=== PATIENT | female | born 2000 | race Hispanic/Latino ===

== ENCOUNTER → 2023-02-12 15:37 | Outpatient (CLI) | payer OTHER, SELFPAY ==
--- NOTE | 2023-02-12 15:39 | DI.US.S_ITS ---
PROCEDURE: US OB <= 14 WEEKS FETUS INDICATIONS: Dating and viability OUTSIDE/PRIOR DATING DATA: Last menstrual period (LMP): 12/14/2022. LMP-based estimated date of delivery (LEWIS): 09/20/2023 First dating scan (date and location): 02/12/2023. Estimated date of delivery (LEWIS) from first dating scan: 09/19/2023. TECHNIQUE: Real-time scanning was performed of the fetus and maternal pelvic organs, with image documentation. Endovaginal scanning was also performed to better visualize the fetus and maternal ovaries. COMPARISON: None. FINDINGS: Heart rate is 163 beats per minute. Cougar-rump length is 2.1 cm corresponding ultrasound age of 8 weeks 5 days. Corpus luteum is seen on the left. Yolk sac is present. 2.3 x 0.5 x 2.6 cm subchorionic hemorrhage is present. IMPRESSION: Living intrauterine gestation at 8 weeks and 5 days ultrasound age, compatible with reported LMP. Small perigestational hemorrhage. We strive to produce accurate, complete, and clear reports of imaging services. To assist us in improving patient care, this report was composed using standard report templates and voice recognition software. Therefore, it may contain abnormal punctuation, insertions and/or omissions. Occasional wrong-word or sound-alike substitutions may occur. Though we review the report and make efforts to correct it, we do recommend that the report be read carefully in proper context to recognize any text inaccuracies. Dictated by: Boom Cantrell M.D. on 02/12/2023 at 17:12 Approved by: Boom Cantrell M.D. on 02/12/2023 at 17:14
== END ==
PROVIDERS: PCP Family Medicine; Referring Provider Obstetrics & Gynecology; Visit Provider Obstetrics & Gynecology
DX: Z34.01 Encounter for supervision of normal first pregnancy, first trimester (principal); Z3A.08 8 weeks gestation of pregnancy
CPT/HCPCS: 76801; 76817

== ENCOUNTER → 2023-03-12 08:44 | Outpatient (CLI) | payer OTHER, SELFPAY ==
[2023-03-12 09:27] LABS: Specimen Label Y
[2023-03-12 10:08] LABS: Add Manual Diff / Slide Review NO; Basophils Absolute Auto 0 /uL (0-100); Basophils Percent Auto 0.5 % (0-2); Eosinophils Absolute Auto 100 /uL (0-450); Eosinophils Percent Auto 0.9 % (2-4); Hematocrit 35.1 % (36-46); Hemoglobin 11.6 g/dL (12.0-16.0); Lymphocytes Absolute Auto 1300 /uL (1100-4500); Lymphocytes Percent Auto 14.8 % (25-40); Mean Corpuscular Hemoglobin 28.5 PG (26-34); Mean Corpuscular Volume 86.3 fL (80-100); Monocytes Absolute Auto 700 /uL (0-900); Monocytes Percent Auto 8.1 % (3-14); Neutrophils Absolute Auto 6400 /uL (1500-7000); Neutrophils Percent Auto 75.7 % (50-75); Platelet Count 187 X10^3/uL (150-400); Red Blood Cell Count 4.07 X10^6/uL (4.0-5.2); Red Cell Distribution Width 16.1 % (11.6-14.8); White Blood Cell Count 8.5 X10^3/uL (4.5-11.0)
[2023-03-12 11:45] LABS: Urine N gonorrhoeae NOT DETECTED
[2023-03-12 11:46] LABS: Urine Chlamydia NOT DETECTED
[2023-03-13 10:37] LABS: Varicella IgG Antibody 926 index (Immune >165)
[2023-03-13 11:14] LABS: RPR Screen Non Reactive (Non Reactive)
[2023-03-13 21:48] LABS: Hepatitis B Surface Antigen NEGATIVE s/c (NEGATIVE)
[2023-03-13 22:03] LABS: HIV 1 & 2 Ab/Ag 4th Gen Combo NEGATIVE (NEGATIVE); Hep C Virus Ab w/Reflex Quant NEGATIVE s/c (NEGATIVE)
== END ==
PROVIDERS: PCP Family Medicine; Referring Provider Obstetrics & Gynecology; Visit Provider Obstetrics & Gynecology
DX: Z34.81 Encounter for supervision of other normal pregnancy, first trimester (principal); Z3A.12 12 weeks gestation of pregnancy
CPT/HCPCS: 36415; 80055; 86787; 86803; 86850; 86900; 86901; 87086; 87389; 87491; 87591

== ENCOUNTER → 2023-04-09 08:49 | Outpatient (CLI) | payer OTHER, SELFPAY ==
[2023-04-11 20:14] LABS: AFP Value 30.3 ng/mL (.); Gest Age on Col Date 16.6 weeks (.); Insulin Dep Diabetes No (.); OSBR Risk 1IN 10000 (.); Results Report (.); Test Results *Screen Negative* (.)
== END ==
PROVIDERS: PCP Family Medicine; Referring Provider Obstetrics & Gynecology; Visit Provider Obstetrics & Gynecology
DX: Z34.01 Encounter for supervision of normal first pregnancy, first trimester (principal); Z3A.16 16 weeks gestation of pregnancy
CPT/HCPCS: 36415; 82105

== ENCOUNTER → 2023-05-05 08:35 | Outpatient (CLI) | payer OTHER, SELFPAY ==
--- NOTE | 2023-05-05 08:36 | DI.US.S_ITS ---
PROCEDURE: US OB >= 14 WEEKS FETUS INDICATIONS: ANATOMY OUTSIDE/PRIOR DATING DATA: Last menstrual period (LMP): 12/14/2022. LMP-based estimated date of delivery (LEWIS): 09/30/2023 First dating scan (date and location): 02/12/2023 Estimated date of delivery (LEWIS) from first dating scan: 09/19/2023 The calculations are made using the working LEWIS of 09/20/2023 TECHNIQUE: Real-time scanning was performed of the fetus, with image documentation and biometric measurements. Endovaginal scanning: Not indicated COMPARISON: None. FINDINGS: General: A single living intrauterine gestation is present. Presentation: Vertex Placenta: Placental position is anterior, without previa. Amniotic fluid index: 12.9 cm, normal range is 5-24 cm. Single deepest vertical pocket is 4.4 cm. heart rate: 150 beats per minute. Maternal cervical canal: 3.9 cm long. Normal lower limit is 2.5 cm. biometrics: Biparietal diameter: 4.9 cm, 20 weeks, 6 days. Head circumference: 18.3 cm, 20 weeks, 5 days. Abdominal circumference: 15.9 cm, 21 weeks, 0 day. Femur length: 3.2 cm, 20 weeks, 1 day. Clinically estimated gestational age: 20 weeks, 2 days. Composite gestational age from present scan: 20 weeks, 5 days. Estimated weight and percentile: 366 grams, 65 percent. Anatomic survey: Neuro: Ventricles are non-dilated at less than 10 mm. Cisterna magna is normal at 3-11 mm. Cerebellum is normal in size and morphology. Nuchal skin fold: Normal at less than 6 mm between 14-21 weeks gestational age. Face: Nose and lips, facial profile are normal. Spine: No evidence for spina bifida. Heart: 4-chambered heart is present, with normal ventricular outflow tracts. Possible echogenic focus is seen in left ventricle. Diaphragm: Diaphragm is intact. Stomach: Left-sided stomach is present. Kidneys: No hydronephrosis. Normal is less than 5 mm in 2nd trimester, less than 7 mm in 3rd trimester. Cord: 3-vessel cord has orthotopic insertion. Bladder: Normal in size. Extremities: All 4 extremities identified. IMPRESSION: 1. Single live intrauterine gestation with fetus in vertex presentation. heart rate is 150 beats per minute. Normal amount of amniotic fluid. Normal growth. Estimated weight is at 65th percentile. 2. Suggestion of echogenic focus within left ventricle. Follow-up study is recommended. 3. Rest of the anatomic survey is normal. We strive to produce accurate, complete, and clear reports of imaging services. To assist us in improving patient care, this report was composed using standard report templates and voice recognition software. Therefore, it may contain abnormal punctuation, insertions and/or omissions. Occasional wrong-word or sound-alike substitutions may occur. Though we review the report and make efforts to correct it, we do recommend that the report be read carefully in proper context to recognize any text inaccuracies. Dictated by: Franklin Neely M.D. on 05/05/2023 at 11:32 Approved by: Franklin Neely M.D. on 05/05/2023 at 11:35
== END ==
PROVIDERS: PCP Family Medicine; Referring Provider Obstetrics & Gynecology; Visit Provider Obstetrics & Gynecology
DX: Z34.02 Encounter for supervision of normal first pregnancy, second trimester (principal); Z3A.20 20 weeks gestation of pregnancy
CPT/HCPCS: 76811

== ENCOUNTER → 2023-06-14 08:30 | Outpatient (CLI) | payer OTHER, SELFPAY ==
[2023-06-14 10:05] LABS: Hematocrit 30.4 % (36-46)
[2023-06-14 10:22] LABS: GTT (PREG) 1 Hour PP 50gm Dose 72 mg/dL (76-139)
== END ==
PROVIDERS: PCP Family Medicine; Referring Provider Obstetrics & Gynecology; Visit Provider Obstetrics & Gynecology
DX: Z34.02 Encounter for supervision of normal first pregnancy, second trimester (principal); Z3A.26 26 weeks gestation of pregnancy
CPT/HCPCS: 36415; 82950; 85014; 85018

== ENCOUNTER → 2023-07-17 09:50 | Outpatient (CLI) | payer OTHER, SELFPAY | PROVIDERS: PCP Family Medicine; Visit Provider Obstetrics & Gynecology | DX: Z34.03 Encounter for supervision of normal first pregnancy, third trimester (principal); R82.998 Other abnormal findings in urine; Z3A.30 30 weeks gestation of pregnancy | CPT/HCPCS: 87086 ==

== ENCOUNTER → 2023-07-31 16:26 | Outpatient (CLI) | payer OTHER, SELFPAY | PROVIDERS: PCP Family Medicine; Visit Provider Obstetrics & Gynecology | DX: R82.998 Other abnormal findings in urine (principal) | CPT/HCPCS: 87086 ==

== ENCOUNTER → 2023-08-28 15:08 | Outpatient (CLI) | payer OTHER, SELFPAY ==
[2023-08-29 13:10] LABS: Strep Grp B PCR NEG for Grp B Strep
== END ==
PROVIDERS: PCP Family Medicine; Visit Provider Obstetrics & Gynecology
DX: O99.891 Other specified diseases and conditions complicating pregnancy (principal); R82.998 Other abnormal findings in urine; R31.9 Hematuria, unspecified; Z3A.36 36 weeks gestation of pregnancy
CPT/HCPCS: 87086; 87653

== ENCOUNTER → 2023-08-28 15:59 | Outpatient (CLI) | payer OTHER, SELFPAY ==
--- NOTE | 2023-08-28 16:01 | DI.US.S_ITS ---
PROCEDURE: OB FOLLOW UP INDICATIONS: SIZE GREATER THAN DATES OUTSIDE/PRIOR DATING DATA: Last menstrual period (LMP): 03/13/2023. LMP-based estimated date of delivery (LEWIS): 09/20/2023. First dating scan (date and location): 02/12/2023. Estimated date of delivery (LEWIS) from first dating scan: 09/19/2023. TECHNIQUE: Real-time scanning was performed of the fetus, with image documentation. COMPARISON: [facility], OB >= 14 WEEKS FETUS, 05/05/2023, 8:57. [facility], OB <= 14 WEEKS FETUS, 02/12/2023, 16:03. FINDINGS: A single living intrauterine gestation is present. Presentation: Vertex. Placenta: Placental position is anterior, without previa. Amniotic fluid index: 21.1 cm, normal range is 5-24 cm. Single deepest vertical pocket is 8 point cm. heart rate: 143 beats per minute. Maternal cervical canal: Not visualized. biometry: BPD: 38 weeks 4 days Head circumference: 39 weeks 2 days Abdominal circumference: 39 weeks 0 day Femur length: 37 weeks 4 days Clinically estimated gestational age: 36 weeks 5 days Estimated gestational age from initial scan: 3566 g; 94% for gestational age.. Cord Doppler ultrasound demonstrates preserved diastolic flow. IMPRESSION: 1. A single living intrauterine gestation with appropriate interval growth. 2. weight is 94% for gestational age. 3. Fetus in vertex presentation. 4. LYN 21.1 cm. 5. Normal anatomic survey. Dictated by: Josee Yates M.D. on 08/29/2023 at 11:20 Approved by: Josee Yates M.D. on 08/29/2023 at 11:29
== END ==
PROVIDERS: PCP Family Medicine; Referring Provider Obstetrics & Gynecology; Visit Provider Obstetrics & Gynecology
DX: O26.843 Uterine size-date discrepancy, third trimester (principal); O99.891 Other specified diseases and conditions complicating pregnancy; R31.9 Hematuria, unspecified; R82.998 Other abnormal findings in urine; Z3A.36 36 weeks gestation of pregnancy
CPT/HCPCS: 76816; 76820; 87086; 87653

== ENCOUNTER 2023-09-18 16:15 | Outpatient (CLI) | payer OTHER, SELFPAY | END 2023-09-18 17:14 | disposition home or self-care (01) | LOC: LABOR 17:09 → OB 09-22 06:39 | PROVIDERS: PCP Family Medicine; Referring Provider Obstetrics & Gynecology; Visit Provider Obstetrics & Gynecology | DX: O36.63X0 Maternal care for excessive fetal growth, third trimester, not applicable or unspecified (principal); Z3A.39 39 weeks gestation of pregnancy | CPT/HCPCS: 59025; G0378; G0379 ==

== ENCOUNTER 2023-09-22 19:25 | Inpatient (IN) | payer OTHER, SELFPAY ==
--- NOTE | 2023-09-22 19:38 | PM.OBHP.1 ---
OB HPI Date/Time Date of admission: 09/22/23 Date Patient Seen: 09/22/23 Time Patient Seen: 19:38 History of Present Condition Chief complaint: IUP, 40+2 wks EGA, LGA, GBS NEG : 1 Para: 0 Estimated Date of Delivery: 09/20/23 Estimated Gestational Age (weeks): 40+2 Narrative: Melinda Meredith is a 23 year old admitted at 40+ 2 weeks gestational age for cervical ripening and induction due to LGA infant at term with borderline pelvis. Patient's course has been largely uneventful with solid early dating appropriate milestones throughout. Patient's diabetes screen was negative but she has had excessive weight gain with a total weight gain thus far in of 66 lb. 's most recent estimated weight by ultrasound was on 08/28/2023 at which time the estimated weight was 3566 g (94th percentile). Current estimated weight by clinical exam is between 8-1/2 and 9-1/4 lb. Indications Indication for induction OB: other (Large for gestational dates at term) History of Present care: none Dating criteria: LMP confirmed by 1st trimester US Ultrasounds: normal 1st trimester US and normal mid trimester US Obstetrical complications: none and other (Large for gestational dates at her) Preadmission Labs Blood type: O (+) positive -: Antibody screen: negative, GBS status: negative, HBsAG: negative, HIV: negative, HSV 2: negative and RPR/VDLR: negative -: Chlamydia screen: not detected and Gonorrhea screen: not detected -: Rubella: immune and Varicella: immune HCT: 37.5 HCAB: negative PAP: Normal Quad screen: Normal (AFP testing negative) Cell-free DNA: Low risk male 1 hr GTT: 72 Prior (ies) History: G1 Evaluation Evaluation Baseline heart rate: 145 Variability: Moderate (11-25) monitor accelerations: Present Monitor Decelerations: Periodic and Variable Contraction Frequency (minutes): 5 Uterine Contraction Intensity: Mild Status: Category l Dilation (cm): 1 Effacement (%): 30 Dilation: 1-2 cm Effacement: 0-30% station: -2 Position of cervix: posterior Consistency: medium Jolley score: 3 [facility] Medical History (Updated 09/18/23 @ 16:10 by Roman Tamez MD) Acne (~2011) Eczema (~2004) Keloid scar Surgical History (Updated 02/16/23 @ 18:53 by Milady Lpiscomb) Anesthesia History of surgical removal of keloid (~2012) [place] teeth extracted (~2017) Family History (Updated 02/16/23 @ 18:56 by Milady Lipscomb) Grandfather Hypertension Diabetes mellitus Mother Pre-diabetes Heart attack Heart disease Hypertension History of recurrent miscarriages Prior miscarriage with in second trimester, antepartum Grandmother Ovarian cancer Grandmother Breast cancer Hypertension Hyperlipidemia Grandfather Diabetes mellitus Hypertension Hyperlipidemia Grandmother Diabetes mellitus Social History marital status: number of children: 0 household members: spouse lives independently: Yes caregiver/support person: No housing: condominium ([facility]) pets and animals: Yes education level: college (braxton's degree) occupational status: employed (childcare) current occupational exposures/hazards: No special kathya needs: No travel history: recent ([place]) seatbelt use: always helmet use: Yes water heater temp set < 120 deg: Yes working smoke detector in home: Yes fire extinguisher in home: Yes carbon monox detector in home: Yes firearms in home: Yes do you feel safe at home: Yes Smoking Status: Never smoker second hand exposure: No alcohol intake: former (occasionally when not ) substance use type: does not use during the past year weight has: remained stable well-balanced diet: about half the time daily servings fruits/ve-4 caffeine: Yes (occasional black tea) Type(s) of exercise: walking and other (active job) Meds Home Medications and Allergies Home Medications Medication Instructions Recorded Confirmed Type prenat.vits,jelena,yhv-apxe-hyiki 1 tab PO DAILY 02/05/23 09/22/23 History breast pump #1 ea 07/02/23 09/22/23 Rx Allergies Allergy/AdvReac Type Severity Reaction Status Date / Time No Known Drug Allergies Allergy Unverified 09/18/23 15:13 Review of Systems Review of Systems Narrative: Problem-specific ROS positives included in HPI OB Exam Vital signs Blood Pressure: 114/63 Pulse Rate: 101 Temperature: 97.5 F HENMT Head: normal to inspection, normocephalic and atraumatic Eyes General: appearance normal, both eyes and all related structures Resp Effort & Inspection: normal respiratory effort and able to speak in complete sentences Auscultation: clear to auscultation bilaterally Cardio Rate: regular rate Rhythm: regular rhythm Heart Sounds: S1 normal, S2 normal and no murmurs Extremities Lower extremity: Yes normal to inspection GI Inspection: normal to inspection Palpation: Yes soft and Yes no hepatosplenomegaly Uterus Location (Fundal Height): 39 Presentation: vertex Estimated Weight (lbs): 9 Objective Labs 09/22/23 21:00 Assessment and Plan Assessment and Plan Assessment and Plan narrative: ASSESSMENT 1. Intrauterine 40+ 2 weeks gestational age 2. Large for gestational age with borderline pelvis 3. GBS negative status PLAN 1. Admit for cervical ripening, induction, and delivery 2. See admission orders Time Spent with Patient Total time spent with greater than 50% in coordination of care (as documented) at patient's floor/unit and/or counseling patient:: 15-24 minutes
[2023-09-22 21:28] LABS: Add Manual Diff / Slide Review NO; Basophils Absolute Auto 0 /uL (0-100); Basophils Percent Auto 0.2 % (0-2); Eosinophils Absolute Auto 100 /uL (0-450); Eosinophils Percent Auto 1.1 % (2-4); Hematocrit 37.5 % (36-46); Hemoglobin 12.4 g/dL (12.0-16.0); Lymphocytes Absolute Auto 1800 /uL (1100-4500); Lymphocytes Percent Auto 13.6 % (25-40); Mean Corpuscular HGB Conc 32.9 % (30-36); Mean Corpuscular Hemoglobin 28.9 PG (26-34); Mean Corpuscular Volume 87.8 fL (80-100); Monocytes Absolute Auto 1300 /uL (0-900); Monocytes Percent Auto 9.9 % (3-14); Neutrophils Absolute Auto 10000 /uL (1500-7000); Neutrophils Percent Auto 75.2 % (50-75); Platelet Count 211 X10^3/uL (150-400); Red Blood Cell Count 4.27 X10^6/uL (4.0-5.2); Red Cell Distribution Width 16.2 % (11.6-14.8); White Blood Cell Count 13.3 X10^3/uL (4.5-11.0)
[2023-09-22] MEDS: miSOPROStoL 25 MCG TABLET 50 MCG PO (23:05)
[2023-09-23] MEDS: LACTATED RINGERS 1,000 ML 100 ML IV (01:45)
[2023-09-23] MEDS: miSOPROStoL 25 MCG TABLET 50 MCG PO ×3 (03:09→12:50)
[2023-09-23 18:08] VITALS: BP 114/63; PULSE 101; TEMP 36.4
--- NOTE | 2023-09-23 18:12 | PM.OBPNLAB ---
Date/Time Date Patient Seen: 09/23/23 Time Patient Seen: 18:12 Pain Control Pain control: tolerating well Pelvic Exam Dilation (cm): 3 Effacement (%): 80 station: -2 Amniotic membrane status: Intact Contractions Contractions on admission: none Monitor mode: External Contraction pattern: Irregular Contraction phase: Resting Contraction intensity: Moderate Status status: Category l Heart Rate Baseline: 145 Monitor Accelerations: Present Monitor Decelerations: Episodic, Late (Rare, isolated)) and Variable Monitor Variability: Moderate Assessment and Plan Assessment: other (Ripening ongoing) Plan: other (See below) Comments: Uribe balloon would be of minimal benefit with the cervix at 3 cm and vertex remains too high for safe AROM. Will instead use Cervidil overnight and reassess as needed with plans to perform AROM/start Pitocin once vertex is well applied to the cervix.
--- NOTE | 2023-09-23 21:34 | PM.OBPNLAB ---
Date/Time Date Patient Seen: 09/23/23 Time Patient Seen: 21:34 Pain Control Pain control: tolerating well Pelvic Exam Dilation (cm): 3 Effacement (%): 80 station: -2 Amniotic membrane status: Intact Contractions Contractions on admission: none Monitor mode: External Contraction pattern: Irregular Contraction phase: Resting Contraction intensity: Moderate Status status: Category l Heart Rate Baseline: 130 Monitor Accelerations: Present Monitor Decelerations: Episodic and Variable Monitor Variability: Moderate Assessment and Plan Assessment: active labor Plan: begin patient augmentation Comments: Unable to place cervidil due to excessive uterine activity following PO misoprostol therefore will initiate low dose Pitocin after RN discussion of options with the patient, spouse, and family. Order placed.
[2023-09-23] MEDS: OXYTOCIN PREMIX 30 UNIT/500 ML PLAST..BAG IV (22:08)
--- NOTE | 2023-09-24 06:56 | PM.PROC.1 ---
Procedures Date/Time Date of procedure: 09/24/23 Time of procedure: 06:36 General Procedure description: BLANCO Placement Back prepped with Chloroprep Sterile Barriers: Drape, gloves, hat, mask Skin local with 3 mL 1% lido 0633 L3/4 epidural space accessed with 18 g toughy at 7 cm, CLOR with saline and bubble Test dose 3 mL 1.5% lido c epi at 0636: negative catheter threaded to 12 cm, bolus dose of 3 mL 1% lido and 2 mL of test dose at 0638 Pump started 0649 Tolerated procedure well, pain initial 10/10 now 2/10 Nerve Block Time out performed: Yes (632) Local anesthetic used: lidocaine 1% (3 mL) Location of anesthetic used: L3/4
[2023-09-24] MEDS: ONDANSETRON 4 MG/2 ML INJ IV ×2 (07:39→15:56)
--- NOTE | 2023-09-24 08:11 | PM.OBPNLAB ---
Date/Time Date Patient Seen: 09/24/23 Time Patient Seen: 08:11 Pain Control Pain control: tolerating well and epidural Pelvic Exam Dilation (cm): 3 Effacement (%): 85 station: -2 Amniotic membrane status: Ruptured Comments: SROM, clear fluid Contractions Contractions on admission: none Monitor mode: Internal (IUPC placed 0800) Pitocin rate (mU/min): 7 Contraction frequency (min): 4 Contraction duration (min): 1 Contraction pattern: Irregular Contraction phase: Resting Contraction intensity: Moderate Status status: Category l Heart Rate Baseline: 135 Monitor Accelerations: Present Monitor Decelerations: Absent Monitor Variability: Moderate Assessment and Plan Assessment: induction ongoing Comments: IUPC placed to assess uterine contraction activity. Patient has had very little change since last evening and both caput and molding were noted on sterile vaginal exam. Would vertex not descending and cervix essentially unchanged over the last 12 hours, am increasingly concerned about the possibility of secondary arrest due to cephalopelvic disproportion. Patient is aware of these concerns and will closely observe for progress and effective uterine contraction activity.
[2023-09-24] MEDS: FENT 2MCG/ML BUPIV 0.125% EPI 200 MCG/100 ML PLAST..BAG 6 MCG EPIDURAL ×2 (12:24→19:16)
--- NOTE | 2023-09-24 12:50 | PM.OBPNLAB ---
Date/Time Date Patient Seen: 09/24/23 Time Patient Seen: 12:25 Pain Control Pain control: tolerating well and epidural Pelvic Exam Dilation (cm): 6 Effacement (%): 100 station: -1 Amniotic membrane status: Ruptured Contractions Contractions on admission: none Monitor mode: Internal (IUPC placed 0800) Pitocin rate (mU/min): 20 Contraction frequency (min): 4 Contraction pattern: Regular Contraction phase: Resting Contraction intensity: Moderate Intrauterine tone measurement: 20 Status status: Category l Heart Rate Baseline: 135 Monitor Accelerations: Present Monitor Decelerations: Absent Monitor Variability: Moderate Assessment and Plan Assessment: active labor and induction ongoing Plan: continuous present management Comments: Reassess for continued progress in 2-4 hrs or PRN.
[2023-09-24] MEDS: CALCIUM CARBONATE 500 MG TAB 1000 MG PO (21:59)
--- NOTE | 2023-09-24 22:06 | PM.OBPNLAB ---
Date/Time Date Patient Seen: 09/24/23 Time Patient Seen: 21:15 Pain Control Pain control: epidural Pelvic Exam Dilation (cm): 8 Effacement (%): 100 station: -1 Amniotic membrane status: Ruptured Contractions Monitor mode: Internal (IUPC placed 0800) Pitocin rate (mU/min): 20 Contraction frequency (min): 4 Contraction pattern: Regular Contraction phase: Resting Contraction intensity: Moderate Intrauterine tone measurement: 20 Status status: Category l Heart Rate Baseline: 140 Monitor Accelerations: Present Monitor Decelerations: Absent Monitor Variability: Moderate Assessment and Plan Assessment: active labor Comments: Has been on pitocin for 24 hours with inadequate contraction strength 100 MVU. Will stop pit to allow washout and then restart after 1 hour, titrate to minimum effective dose and reassess for cervical change.
[2023-09-25] MEDS: FENT 2MCG/ML BUPIV 0.125% EPI 200 MCG/100 ML PLAST..BAG 6 MCG EPIDURAL (02:12)
[2023-09-25] MEDS: ONDANSETRON 4 MG/2 ML INJ IV (03:25)
--- NOTE | 2023-09-25 05:14 | P.PNOB_ITS ---
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 Patient consented for with risk/benefits/alternatives discussed and all questions answered. Diagnosis failure to progress/2nd stage arrest.
[2023-09-25] MEDS: CITRIC ACID/SODIUM CITRATE 15 ML SOLUTION 30 ML PO (05:20)
[2023-09-25] MEDS: AZITHROMYCIN 500 MG in DEXTROSE 5% IN WATER 250 ML 250 MG IV (06:10)
--- NOTE | 2023-09-25 06:18 | SUR.OPER ---
Supine on Padded OR bed, head on pillow, safety belt at thigh, arms secured on padded arm boards at <90 degrees abduction. Bump under right buttock. Legs uncrossed with pillow under knees, gel pad to heels, tape over blanket to lower legs.
[2023-09-25] MEDS: CEFAZOLIN VIAL 3 GM in SODIUM CHLORIDE 0.9% 100 ML IV (06:20)
[2023-09-25] MEDS: ACETAMINOPHEN IV 1,000 MG/100 ML VIAL 400 MG IV (06:35)
[2023-09-25] MEDS: METHYLERGONOVINE 0.2 MG/ML VIAL IM (06:42)
--- NOTE | 2023-09-25 06:45 | SUR.OPER ---
Viable baby boy born at 0630. Placenta delivered at 06.. APGARs 7/9. Placenta and cord blood given to OB RN.
[2023-09-25 07:45] VITALS: BP 117/74; PULSE 96; RESP 16; TEMP 37.2; O2SAT 100
[2023-09-25] MEDS: HYDROMORPHONE 1 MG INJ IV ×2 (07:49→07:55)
[2023-09-25 07:50] VITALS: BP 124/76; PULSE 89; RESP 15; O2SAT 99
[2023-09-25 07:55] VITALS: BP 126/81; PULSE 95; RESP 20; O2SAT 100
[2023-09-25 08:00] VITALS: BP 135/74; PULSE 100; RESP 17; O2SAT 100
[2023-09-25 08:15] VITALS: BP 126/77; PULSE 95; RESP 20; TEMP 37.2; O2SAT 100
[2023-09-25] MEDS: KETOROLAC 30 MG/ML VIAL IV ×2 (16:01→22:38)
--- NOTE | 2023-09-25 18:21 | PM.OBCS.1 ---
Operative Date/Time/Diagnoses Date of procedure: 09/25/23 Time of procedure: 06:20 Pre-op diagnosis: EGA 40 weeks Failure to progress/2nd stage arrest of labor Excessive weight gain in Post-op diagnosis: same Procedure & Clinicians Procedure: Primary low-transverse section Same procedure as scheduled: Yes Indications: Failure to progress/2nd stage arrest of labor Surgeon: Lucio Cotter Click Yes if Unassisted: No Windows Deployment Technician: Sri Dailey Reason for Windows Deployment Technician: The support assistant was necessary to retract on entry into the abdomen and uterus. She assisted with delivery of the with fundal pressure. She assisted with closure of the uterine incision and closure of additional layers with retraction and clipping of suture. Anesthesia Type: Epidural Operative Notes Findings: Single live male infant in the LOT presentation Normal uterus, tubes, and ovaries Closure Type: primary Specimen(s): cord blood and placenta Intraoperative meds administered: Ketorolac, Methergine and Pitocin Applied: Catheter (to continuous drainage) Estimated Blood Loss (mL): 700 Blood products transfused: none Procedure in detail: The patient was taken to the operating room where she was placed in the dorsal supine position with a leftward tilt and then prepped and draped in the usual sterile fashion. A time out was performed. After epidural anesthesia was found to be adequate a Pfannenstiel skin incision was then made with scalpel and carried through to the underlying layer of fascia. The fascia was incised in the midline and the incision extended bilaterally with Dan scissors. The superior aspect of the fascial incision was then grasped with the Denys clamps, elevated and the underlying rectus muscles dissected off bluntly. Attention was then turned to the inferior aspect of this incision which, in a similar fashion, was grasped, tented up with the Denys clamps, and the rectus muscles dissected off bluntly. The rectus muscles were then in the midline, and the peritoneum identified, tented up, and entered bluntly. The peritoneal incision was then extended superiorly and inferiorly with good visualization of the bladder. The bladder blade was then inserted and the lower uterine segment incised in a transverse fashion with a scalpel. The uterine incision was then extended laterally with blunt traction. Upon entering the amniotic sac there was moderate amount of clear amniotic fluid. The bladder blade was removed and the head delivered atraumatically while the remainder of the body delivered without difficulty. The nose and mouth were suctioned with bulb suction, and cord clamped and cut. The infant was handed off to the waiting care team. Cord blood was sent. The placenta was then expressed; the uterus was exteriorized, and cleared of all clots and debris. The uterine incision was repaired with 0 Vicryl in a running, locked fashion. A second imbricating layer of the same suture was used to obtain excellent hemostasis. The tubes and ovaries were examined and found to be normal, and uterus returned to the abdomen. The gutters were cleared of all clots, and the peritoneum closed with 3-0 Monocryl. The fascia was reapproximated with 0 Vicryl in a running fashion. The subcutaneous layer was copiously irrigated with warm normal saline and then reapproximated with 3-0 Vicryl. The skin was closed with 4-0 Monocryl in a subcuticular fasion. Dermabond was applied to the incision, and a pressure bandage then placed. The uterus was expressed of a small amount of old blood. Sponge, lap, and instrument counts were correct x 2. The patient tolerated the procedure well and was taken to the recovery room in stable condition. Complications: none [place] Baby 1: Infant Gender: Male Presentation: vertex Position: Left Occiput Transverse Details: back down Placental Delivery Description: Expressed Cord Vessel Description: 3 Vessels and Nuchal Cord score (1 min): 7 score (5 min): 9 weight: 8 lb 10.732 oz Post-operative Condition: stable Disposition: PACU Aftercare: routine postop
[2023-09-25] MEDS: ACETAMINOPHEN 325 MG TABLET 650 MG PO (19:05)
[2023-09-25] MEDS: LANOLIN OINT 7 GM 1 APPLIC TOP (22:39)
[2023-09-26] MEDS: ACETAMINOPHEN 325 MG TABLET 650 MG PO ×3 (01:49→15:13)
[2023-09-26] MEDS: KETOROLAC 30 MG/ML VIAL IV (04:45)
[2023-09-26] MEDS: PRENATAL VIT,CALC/IRON/FOLIC 1 TABLET 1 TAB PO (08:55)
--- NOTE | 2023-09-26 13:08 | P.PNOB_ITS ---
Subjective - OB Subjective Patient comments: no complaints, pain well controlled, incisional pain, tolerating diet and flatus present baby status: doing well Champion feeding status: other ( but having latching issues; customer service sales consultant involved) Narrative: Doing extremely well. No issues with pain control. Patient ambulating independently. Tolerating regular diet. Date Patient Seen: 09/26/23 Time Patient Seen: 13:09 Exam Vital Signs (past 8 hours): Oxygen Delivery Method Room Air Const General: cooperative and comfortable Nutritional Appearance: average body habitus Orientation: alert and oriented x3 HENMT Head: normal to inspection, atraumatic and abrasion Ears: hearing grossly normal bilaterally Face and sinus: face symmetric Eyes General: appearance normal, both eyes and all related structures Conjunctivae: conjunctivae normal Sclera: sclerae normal EOM: EOM intact bilaterally Neck Neck: normal visual inspection Resp Effort & Inspection: normal respiratory effort and able to speak in complete sentences Auscultation: clear to auscultation bilaterally Cardio Rate: regular rate Rhythm: regular rhythm Heart Sounds: S1 normal, S2 normal and no murmurs GI Inspection: normal to inspection and incision (Surgical dressing clean and dry) Palpation: soft, no hepatosplenomegaly and tender (Mild, diffuse postsurgical tenderness) External Female Exam: other (No significant bleeding noted) Extrem General: no calf tenderness Psych Appearance: grossly normal Mental Status: mental status grossly normal Speech and Movement: speech and movement normal Mood: congruent mood Affect: normal affect Attitude: cooperative Thought Process: normal Thought Content: normal Judgment: judgment good Objective Labs 09/22/23 21:00 Assessment & Plan Plan day: 1 plan OB: routine postop care Comments: Anticipate discharge in a.m. Time Spent With Patient Time: Total time spent is greater than 50% in coordination of care (as documented) at patient's floor/unit and/or counseling patient: Time with patient: 15-24 minutes
[2023-09-26] MEDS: OXYCODONE IR 5 MG TABLET PO (15:23)
--- NOTE | 2023-09-26 17:39 | P.DS_ITS ---
Discharge Providers Provider Date of admission: 09/22/23 19:25 Discharge Date: 09/26/23 Primary care physician: Amber Machuca MD Consults: 09/22/23 19:30 Consult to Anesthesiology Urgent Comment: Consulting Provider: Roman Tamez Reason for consultation: Epidural 09/25/23 14:38 Consult to Air Traffic Coordinator Routine Comment: Discharge provider: Roman Tamez MD Summary Hospital Course Date Patient Seen: 09/26/23 Time Patient Seen: 17:40 Diagnoses: Intrauterine gestation, 40+ 4 weeks gestational age, delivered by primary section Cephalopelvic disproportion Hospital Course: Melinda was admitted on the evening of 09/22/2023 for cervical ripening and induction due to macrosomia at 40+ 2 weeks gestational age. She underwent multi day induction but despite adequate labor and close observation for progress, failed to progress beyond 85% effacement/8 cm dilation/-1 station. On the evening of 09/25/2023, she underwent a primary section with delivery of a viable male infant Apgars 7/9, and a weight of 8 lb 10.73 oz. following delivery both mother and baby have done well with the mother experiencing prompt return of bowel and bladder function, ambulating independently, tolerating a regular diet, and her pain is well relieved with oral pain medications. She will be discharged at this time to home in an afebrile normotensive condition after counseling regarding precautionary symptoms, limitations of activity, medications, and plans for follow-up which will be in 1 week for incision check. Medications at discharge will include resumption of all preadmission medications and ibuprofen 600 mg every 6 hours as needed for pain. In addition she will also use [id number] Tylenol for additional pain relief. Peripartum Data Infant Delivery Method: Section Laceration Description: None Episiotomy description: None Procedures: Continuous lumbar epidural anesthesia for labor Primary section (low transverse cervical) complications: none Foster 1: Gender: Male Disposition of : home Status at Discharge Cognitive/behavioral status at discharge: oriented Functional status at discharge: independent ambulation Overall status at discharge: patient is progressing back to baseline Time Spent with Patient Time attestation: Total time spent providing and/or coordinating discharge services: Time spent: Less than 30 minutes Objective Labs 09/22/23 21:00 Exam Vital Signs (past 8 hours): Oxygen Delivery Method Room Air Const General: cooperative and comfortable Nutritional Appearance: average body habitus Orientation: alert and oriented x3 HENMT Head: normal to inspection, atraumatic and abrasion Ears: hearing grossly normal bilaterally Face and sinus: face symmetric Eyes General: appearance normal, both eyes and all related structures Conjunctivae: conjunctivae normal Sclera: sclerae normal EOM: EOM intact bilaterally Neck Neck: normal visual inspection Resp Effort & Inspection: normal respiratory effort and able to speak in complete sentences Auscultation: clear to auscultation bilaterally Cardio Rate: regular rate Rhythm: regular rhythm Heart Sounds: S1 normal, S2 normal and no murmurs GI Inspection: normal to inspection and incision (Incision clean and dry, Aquacel applied) Palpation: soft, no hepatosplenomegaly and tender (Mild, diffuse postsurgical tenderness) Auscultation: normal bowel sounds External Female Exam: other (No significant bleeding noted) Extrem General: no calf tenderness Psych Appearance: grossly normal Mental Status: mental status grossly normal Speech and Movement: speech and movement normal Mood: congruent mood Affect: normal affect Attitude: cooperative Thought Process: normal Thought Content: normal Judgment: judgment good Discharge Plan Discharge Plan Patient Disposition: Home Provider Discharge Comment: Please review the written instructions you received when you were discharged from the hospital. Your follow-up appointment will be scheduled for 1 week after your and I look forward to seeing you then. If however in the meanwhile you have any issues, concerns, or questions, please contact me either through the office phone at [phone], or via the patient portal. Discharge orders & Medications Prescriptions: New ibuprofen 600 mg tablet 600 mg PO Q6H PRN (Reason: fever or pain) Qty: 30 2RF Continued prenat.vits,jelena,[id number] Tablet 1 tab PO DAILY (DME) breast pump Device See Rx Instructions miscellaneous .MEDSUPPLY Qty: 1 0RF Rx Instructions: As directed No Action cephalexin 500 mg capsule 500 mg PO BID Qty: 10 0RF sertraline 25 mg tablet 25 mg PO BID Qty: 60 12RF Follow up/Referrals: Amber Machuca MD [Primary Care Provider] - Roman Tamez MD [Physician] - (Incision check on 10/03/2023 @ 1345pm 6 week follow up appt on 11/06/2023 @ 1330pm with Dr. Tamez) Discharge Health Status Multidrug resistant organism: No MDRO Diet/Activity/Treatments Diet: Diet as Tolerated Activity: As tolerated Other treatments: Tylenol may be used for additional pain relief. Skin/Wound/Dressing Care Report to your healthcare provider any signs of infection, such as:: chills, fever, increased pain, unusual drainage and unusual redness Dressing: Dressing will be removed at the time of your one-week postop visit Visit Report/Discharge Packet Instructions: DI for , DI for and Nipple Soreness Discharge Data Primary Care Provider: Amber Machuca
== END 2023-09-26 18:40 | disposition home or self-care (01) | DRG 788 ==
PROVIDERS: Family Medicine; Admitting Provider Obstetrics & Gynecology; PCP Family Medicine; Referring Provider Obstetrics & Gynecology; Visit Provider Obstetrics & Gynecology
PROC: 10D00Z1 Extraction of Products of Conception, Low, Open Approach (ICD-10-PCS; CPT 59514; principal; 2023-09-25 05:45)
DX: O61.0 Failed medical induction of labor (principal); O36.63X0 Maternal care for excessive fetal growth, third trimester, not applicable or unspecified; Z3A.40 40 weeks gestation of pregnancy; Z37.0 Single live birth; O76 Abnormality in fetal heart rate and rhythm complicating labor and delivery
CPT/HCPCS: 36415; 59050; 59200; 59510; 59514; 85025; 86850; 86900; 86901; G0379; J0131; J0690; J1100; J1170; J1885; J2210; J2274; J2405; J2590; J2765; J3010

== ENCOUNTER 2025-05-15 15:24 | Emergency (ER) | payer OTHER, SELFPAY ==
[2025-05-15 15:35] VITALS: BP 110/72; PULSE 82; RESP 16; TEMP 36.2; O2SAT 99; BMI 29.2
--- NOTE | 2025-05-15 15:39 | DI.RAD.S_ITS ---
PROCEDURE: XR ANKLE LT MIN 3V INDICATIONS: rolled ankle, pain TECHNIQUE: 3 views of the ankle were acquired. COMPARISON: None. FINDINGS: Bones: Nondisplaced fracture through the fibular tip associated with soft tissue swelling. No radiopaque foreign body Soft tissues: No tibiotalar joint effusion. Achilles tendon appears normal. IMPRESSION: Nondisplaced distal fibular avulsion fracture Approved by: Tripp Cano M.D. on 05/15/2025 at 15:32
[2025-05-15 18:07] VITALS: BP 129/78; PULSE 74; RESP 16; O2SAT 100
--- NOTE | 2025-05-15 18:39 | ED_ITS ---
HPI - Extremity Injury (Lower) General Chief Complaint: Extremity Injury, Lower Stated Complaint: GLF, L Ankle Injury Time Seen by Provider: 05/15/25 18:00 Source: patient Mode of arrival: Ambulatory History of Present Illness HPI Narrative: 25-year-old female had ankle inversion twist injury earlier today, persisting left lateral ankle pain, also some left medial ankle pain. No previous injuries to that area. No other injuries recalled. She has not taken any specific medications. Hurts to walk or move or twist the ankle. Denies pain to the left foot, toes, upper foreleg, knee, thigh, hip. Related Data Home Medications ?Medication ?Instructions ?Recorded ?Confirmed prenat.vits,jelena,sun-momq-mjkch 1 tab PO DAILY 02/05/23 11/13/23 Previous Rx's ?Medication ?Instructions ?Recorded breast pump #1 ea 07/02/23 ibuprofen 600 mg tablet 600 mg PO Q6H PRN fever or p ain 09/26/23 #30 tabs cephalexin 500 mg capsule 500 mg PO BID #10 caps 11/08 sertraline 25 mg tablet 25 mg PO BID #60 tabs Allergies Allergy/AdvReac Type Severity Reaction Status Date / Time No Known Drug Allergies Allergy Verified 05/15/25 15:35 Patient History Medical History (Updated 05/15/25 @ 18:51 by Miki Jackson MD) Acne (~2011) Eczema (~2004) Keloid scar Surgical History (Updated 11/13/23 @ 15:09 by Roman Tamez MD) History of section Anesthesia History of surgical removal of keloid (~2012) [place] teeth extracted (~2017) Family History (Updated 02/16/23 @ 18:56 by Milady Lipscomb) Grandfather Hypertension Diabetes mellitus Mother Pre-diabetes Heart attack Heart disease Hypertension History of recurrent miscarriages Prior miscarriage with in second trimester, antepartum Grandmother Ovarian cancer Grandmother Breast cancer Hypertension Hyperlipidemia Grandfather Diabetes mellitus Hypertension Hyperlipidemia Grandmother Diabetes mellitus Social History marital status: number of children: 0 household members: spouse lives independently: Yes caregiver/support person: No housing: [facility] ([facility]) pets and animals: Yes education level: college (braxton's degree) occupational status: employed (childcare) current occupational exposures/hazards: No special kathya needs: No travel history: recent ([place]) seatbelt use: always helmet use: Yes water heater temp set < 120 deg: Yes working smoke detector in home: Yes fire extinguisher in home: Yes carbon monox detector in home: Yes firearms in home: Yes do you feel safe at home: Yes Smoking Status: Never smoker second hand exposure: No alcohol intake: former (occasionally when not ) substance use type: does not use during the past year weight has: remained stable well-balanced diet: about half the time daily servings fruits/ve-4 caffeine: Yes (occasional black tea) Type(s) of exercise: walking and other (active job) Smoking Status: Never smoker Exam Narrative Exam Narrative: GENERAL: Well-developed patient, in mild distress. HEAD: Atraumatic. Normocephalic. EYES: Pupils equal round and reactive. Extraocular motions intact. No scleral icterus. No injection or drainage. ENT: Nose without bleeding, purulent drainage. Airway patent. NECK: Trachea midline. Non tender CARDIOVASCULAR: Regular rate and rhythm without murmurs, gallops, or rubs. RESPIRATORY: Clear to auscultation. Breath sounds equal bilaterally. No wheezes, rales, or rhonchi. GASTROINTESTINAL: Abdomen soft, non-tender, nondistended. EXTREMITIES: Has tenderness to the left lateral malleolar tip, also along left anterior malleolar joint line, also some mild tenderness to the medial ankle joint line. No gross deformity. Good DP pulses and cap refill. No obvious injury or tenderness proximal left foreleg. NEURO: AOx3. Motor functions grossly nonfocal. SKIN: No rash or erythema of visible areas Initial Vital Signs Initial Vital Signs: Vital Signs Temperature 97.2 F L 05/15/25 15:35 Pulse Rate 82 05/15/25 15:35 Respiratory Rate 16 05/15/25 15:35 Blood Pressure 110/72 05/15/25 15:35 Pulse Oximetry 99 05/15/25 15:35 Oxygen Delivery Method Room Air 05/15/25 15:35 Course Orders Ordered: Discontinued Medications Hydrocodone Bitart/Acetaminophen (Hydrocodone/Acet 5/325 Tablet) 1 tab PO NOW ONE Stop: 05/15/25 18:33 Last Admin: 05/15/25 18:41 Dose: 1 tab Documented By: SB Hydrocodone Bitart/Acetaminophen (Hydrocodone/Acet 5/325 Prepack) 1 bottle MISC DIRECTED ONE Stop: 05/15/25 18:47 Last Admin: 05/15/25 18:54 Dose: 1 bottle Documented By: VIC Vital Signs Vital signs: Vital Signs - 8 hr 05/15/25 15:35 05/15/25 18:07 Temperature 97.2 F L Pulse Rate 82 74 Respiratory Rate 16 16 Blood Pressure 110/72 129/78 Pulse Oximetry 99 100 Oxygen Delivery Method Room Air Room Air MDM - Extremity Injury (Lower) MDM Narrative Medical decision making narrative: 25-year-old female with left ankle inversion injury and persisting left ankle pain, tenderness lateral greater than medial. X-ray from triage shows avulsion fracture to the distal fibular tip left side. We will place in posterior short- leg splint, nonweightbearing with crutches. Given dose of hydrocodone/APAP with request for pain medication. Home pack. Follow up with Orthopedic surgery, given contact information for local orthopedic surgery Dr. Sethi. Discharged home with family. Discharge Plan Departure Patient Disposition: Home Clinical Impression: Fracture of left fibula Activity Restrictions/Additional Instructions: Inversion injury with left lateral ankle pain and tenderness. X-ray shows left fibula tip fracture. Placed in posterior short-leg splint with nonweightbearing crutches. Follow up with Orthopedic surgery, clinic contact information provided. Take [id number] ibuprofen as needed. Home pack of hydrocodone/acetaminophen additionally given for pain control. Call the office with Orthopedic surgery tomorrow Friday during regular hours. Return earlier to this/nearest emergency department for any change worsening symptoms or any concerns prior. Prescriptions: No Action cephalexin 500 mg capsule 500 mg PO BID Qty: 10 0RF prenat.vits,jelena,[id number] Tablet 1 tab PO DAILY (DME) breast pump Device See Rx Instructions miscellaneous .MEDSUPPLY Qty: 1 0RF Rx Instructions: As directed sertraline 25 mg tablet 25 mg PO BID Qty: 60 12RF ibuprofen 600 mg tablet 600 mg PO Q6H PRN (Reason: fever or pain) Qty: 30 2RF Referrals: Sunita Sethi MD [Physician, Orthopedic Surgery] Amber Machuca MD [Primary Care Provider, Family Practice] Stand Alone Forms: Patient Portal/API
[2025-05-15] MEDS: HYDROCODONE/ACET 5/325 TABLET 1 TAB PO (18:41)
[2025-05-15] MEDS: HYDROCODONE/ACET 5/325 PREPACK 1 BOTTLE MISC (18:54)
[2025-05-15 19:15] VITALS: BP 121/83; PULSE 70; RESP 16; O2SAT 100
[2025-05-15 20:22] VITALS: BP 121/83; PULSE 72; RESP 16; O2SAT 100
== END 2025-05-15 20:22 | disposition home or self-care (01) ==
PROVIDERS: Emergency Provider Emergency Medicine; PCP Family Medicine
DX: S82.492A Other fracture of shaft of left fibula, initial encounter for closed fracture (principal); X50.1XXA Overexertion from prolonged static or awkward postures, initial encounter
CPT/HCPCS: 29515; 73610; 99283